=== PATIENT | female | born 1945 | race Caucasian/White ===

== ENCOUNTER 2021-07-27 23:24 | Emergency (ER) | payer OTHER, MEDICARE ==
[2021-07-28 03:48] LABS: BASOPHIL 0.6 % (0-2); EOSINOPHIL 0.7 % (0-7); HCT 39.2 % (37.0-47.0); LYMPHOCYTE 19.6 % (15-48); MCH 29.2 pg (25.0-31.0); MCHC 33.2 g/dL (32.0-36.0); MCV 88.1 fL (78.0-100.0); MONOCYTE 6.7 % (0-12); MPV 9.9 fL (6.0-9.5); NRBC 0; PLT 260 K/uL (150-400); RBC 4.45 M/uL (4.20-5.40); RDW 13.8 % (11.5-14.0); WBC 7.2 K/uL (4.0-10.5)
[2021-07-28 04:05] LABS: ALBUMIN 4.2 g/dL (3.4-5.0); BILIRUBIN - TOTAL 0.4 mg/dL (0.2-1.0); BUN/CREAT RATIO (CALC) 26.5 RATIO; CREATININE 0.68 mg/dL (0.51-0.95); GLOBULIN (CALCULATION) 2.8 g/dL; POTASSIUM 4.4 mmol/L (3.5-5.1)
== END 2021-07-28 04:25 | disposition other institution (70) ==
LOC: FER 23:24
PROVIDERS: Emergency Medicine
DX: S82.142A Displaced bicondylar fracture of left tibia, initial encounter for closed fracture (principal); I48.91 Unspecified atrial fibrillation; Z20.822 Contact with and (suspected) exposure to COVID-19; Z79.899 Other long term (current) drug therapy; V47.5XXA Car driver injured in collision with fixed or stationary object in traffic accident, initial encounter; Y92.410 Unspecified street and highway as the place of occurrence of the external cause
CPT/HCPCS: 36415; 71045; 73560; 73610; 73700; 80053; 83690; 85025; J2270; U0002

== ENCOUNTER 2022-03-28 11:56 | Emergency (ER) | payer OTHER ==
[2022-03-28 12:29] LABS: BASOPHIL 0.8 % (0-2); EOSINOPHIL 1.7 % (0-7); HCT 40.7 % (37.0-47.0); HGB 13.4 g/dl (12.5-16.0); LYMPHOCYTE 29.2 % (15-48); MCHC 32.9 g/dL (32.0-36.0); MCV 88.1 fL (78.0-100.0); NEUTROPHIL 60.9 % (41-80); NRBC 0; PLT 240 K/uL (150-400); RBC 4.62 M/uL (4.20-5.40); RDW 14.4 % (11.5-14.0); WBC 5.3 K/uL (4.0-10.5)
[2022-03-28 12:48] LABS: BUN/CREAT RATIO (CALC) 24.1 RATIO; CREATININE 0.87 mg/dL (0.51-0.95); POTASSIUM 4.3 mmol/L (3.5-5.1)
[2022-03-28] MEDS ORDERED: NORCO 5-325 TA1 EACH PO (14:55)
== END 2022-03-28 15:12 | disposition home or self-care (01) ==
LOC: FER 11:56
PROVIDERS: Nurse Practitioner Family
DX: S63.591A Other specified sprain of right wrist, initial encounter (principal); S13.4XXA Sprain of ligaments of cervical spine, initial encounter; I10 Essential (primary) hypertension; Z28.310 Unvaccinated for COVID-19; Z88.6 Allergy status to analgesic agent; Z88.8 Allergy status to other drugs, medicaments and biological substances; Z79.899 Other long term (current) drug therapy; W19.XXXA Unspecified fall, initial encounter; Y93.89 Activity, other specified; Y92.009 Unspecified place in unspecified non-institutional (private) residence as the place of occurrence of the external cause
CPT/HCPCS: 36415; 70450; 70486; 72125; 73110; 80048; 85025